=== PATIENT | female | born 1995 | race Caucasian/White ===

== ENCOUNTER 2021-11-04 21:18 | Emergency (ER) | payer MEDICAID ==
[~2021-11-04] VITALS: Ht 157.5 cm; Wt 143.8 kg
[2021-11-04 21:27] VITALS: BP_SYST 152
[2021-11-05] MEDS ORDERED: KETOROLAC TROMETHAMINE 60 MG/2 ML VIAL IM ONE (02:45)
[2021-11-05] MEDS ORDERED: IBUP-1969 PO (03:29)
[2021-11-05] MEDS ORDERED: CYCL10TA24 PO (03:29)
[2021-11-05 04:15] VITALS: BP_SYST 137
== END 2021-11-05 04:15 | disposition home or self-care (01) ==
LOC: SED 21:18
DX: M54.50 Low back pain, unspecified (principal); Z79.899 Other long term (current) drug therapy
CPT/HCPCS: 72100; 96372; 99283; J1885